=== PATIENT | female | born 1960 | race Caucasian/White ===

== ENCOUNTER → 2016-08-21 | Outpatient (CLI) | payer BC ==
[2014-02-08 10:43] VITALS: BP 168/61
[~2016-08-21] MED LIST: LISI1TAB5 PO; METF500T4 PO; SIMV40TA3 PO
--- NOTE | 2016-08-21 13:11 | RAD ---
DATE: 08/21/2016 EXAM: DIGITAL SCREEN BILAT W/CAD HISTORY: Screening study. COMPARISON: 11/18/2014 This study was interpreted with the benefit of Computerized Aided Detection (CAD). FINDINGS: Digital MLO and CC mammograms of both breasts were obtained. Comparison study is dated 08/21/2016. The breast parenchyma is composed of scattered fibroglandular densities which can obscure a lesion on mammography (breast density code B). No spiculated mass is seen. No malignant appearing calcification or area of architectural distortion is noted. Benign-appearing calcifications are seen scattered throughout both breasts. Since the previous examination there has been no significant interval change. IMPRESSION: Post category 1, negative. There is no mammographic evidence of malignancy. Routine yearly screening mammography is recommended for follow-up. BI-RADS CATEGORY: 1 NEGATIVE RECOMMENDED FOLLOW-UP: 12M 12 MONTH FOLLOW-UP PQRS compliance statement: Patient information was entered into a reminder system with a target due date 08/21/2017 for the next mammogram. Mammography is a sensitive method for finding small breast cancers, but it does not detect them all and is not a substitute for careful clinical examination. A negative mammogram does not negate a clinically suspicious finding and should not result in delay in biopsying a clinically suspicious abnormality. "Our facility is accredited by the [employer] Mammography [employer]."
== END | disposition home or self-care (01) ==
LOC: MAMMO 08:11
PROVIDERS: ATTEND Family Medicine
DX: Z12.31 Encounter for screening mammogram for malignant neoplasm of breast (principal)
CPT/HCPCS: G0202; 77067

== ENCOUNTER → 2017-08-23 | Outpatient (CLI) | payer BC ==
[2014-02-08 10:43] VITALS: BP 168/61
--- NOTE | 2017-08-23 12:32 | RAD ---
DATE: 08/23/2017 EXAM: DIGITAL SCREEN BILAT W/CAD HISTORY: Routine screening COMPARISON: 08/21/2016 This study was interpreted with the benefit of Computerized Aided Detection (CAD). The breast parenchyma shows scattered fibroglandular densities. Breast parenchyma level B. FINDINGS: No new or enlarging breast densities are seen. Benign type calcifications are present. No suspicious microcalcifications have developed. IMPRESSION: Stable mammograms without evidence of malignancy. BI-RADS CATEGORY: 2 BENIGN FINDING(S) RECOMMENDED FOLLOW-UP: 12M 12 MONTH FOLLOW-UP PQRS compliance statement: Patient information was entered into a reminder system with a target due date for the next mammogram. Mammography is a sensitive method for finding small breast cancers, but it does not detect them all and is not a substitute for careful clinical examination. A negative mammogram does not negate a clinically suspicious finding and should not result in delay in biopsying a clinically suspicious abnormality. "Our facility is accredited by the [employer] Mammography [employer]."
== END | disposition home or self-care (01) ==
LOC: MAMMO 10:19
PROVIDERS: ATTEND Family Medicine
DX: Z12.31 Encounter for screening mammogram for malignant neoplasm of breast (principal)
CPT/HCPCS: 77067

== ENCOUNTER → 2018-08-27 | Outpatient (CLI) | payer BC ==
[2014-02-08 10:43] VITALS: BP 168/61
[~2018-08-27] MED LIST changes: +METF500T16 PO; -METF500T4 PO
--- NOTE | 2018-08-28 12:20 | RAD ---
DATE: 08/27/2018 EXAM: DIGITAL SCREEN BILAT W/CAD HISTORY: Routine screening COMPARISON: 08/23/2017 This study was interpreted with the benefit of Computerized Aided Detection (CAD). Breast Density: SCATTERED The breast parenchyma shows scattered fibroglandular densities. Breast parenchyma level B. FINDINGS: 2-D and 3-D tomosynthesis imaging was performed in CC and MLO projections. No new or enlarging breast densities are seen. Benign type calcifications are present. No suspicious microcalcifications have developed. IMPRESSION: Stable mammograms without evidence of malignancy. BI-RADS CATEGORY: 2 BENIGN FINDING(S) RECOMMENDED FOLLOW-UP: 12M 12 MONTH FOLLOW-UP PQRS compliance statement: Patient information was entered into a reminder system with a target due date for the next mammogram. Mammography is a sensitive method for finding small breast cancers, but it does not detect them all and is not a substitute for careful clinical examination. A negative mammogram does not negate a clinically suspicious finding and should not result in delay in biopsying a clinically suspicious abnormality. "Our facility is accredited by the [employer] Mammography [employer]."
== END | disposition home or self-care (01) ==
LOC: MAMMO 09:56
PROVIDERS: ATTEND Family Medicine
DX: Z12.31 Encounter for screening mammogram for malignant neoplasm of breast (principal); R92.8 Other abnormal and inconclusive findings on diagnostic imaging of breast
CPT/HCPCS: 77067

== ENCOUNTER → 2019-11-30 | Outpatient (CLI) | payer BC ==
[2014-02-08 10:43] VITALS: BP 168/61
[~2019-11-30] MED LIST changes: +LISI1TAB37 PO; -LISI1TAB5 PO; +SIMV40TA18 PO; -SIMV40TA3 PO
--- NOTE | 2019-11-30 16:16 | RAD ---
EXAM: Left lower extremity venous Doppler. HISTORY: Left lower extremity pain/swelling. COMPARISON: None. FINDINGS: Grayscale and Doppler analysis of the left lower extremity deep venous system was performed with graded compression and augmentation. The common femoral, greater saphenous, superficial femoral, popliteal and calf veins were assessed. Deep venous thrombosis is is occlusive in the peroneal vein and nonocclusive in the posterior tibial veins. There is no deep venous thrombosis more proximally. IMPRESSION: 1. Deep venous thrombosis in the left calf veins as above. These findings were called to Abi by Donald Cespedes on 11/30/2019 at 4:13 PM. FOR INTERNAL CODING PURPOSES RESULT CODE: (C) Electronically signed by: Noel Cespedes MD (11/30/2019 4:13 PM) [id number]
== END ==
LOC: US 15:31
PROVIDERS: ATTEND Specialist
DX: I82.462 Acute embolism and thrombosis of left calf muscular vein (principal)
CPT/HCPCS: 93971

== ENCOUNTER → 2019-12-21 | Outpatient (CLI) | payer BC ==
[2014-02-08 10:43] VITALS: BP 168/61
--- NOTE | 2019-12-21 12:21 | RAD ---
Examination: 1. Left knee 3 views. 2. Left tibia-fibula 2 views. 3. Left ankle 3 views INDICATION: Pain FINDINGS: Left knee: No fracture or malalignment. Medial compartment asymmetric joint space narrowing with minimal varus angulation. Osteophytic spurs at the superior inferior pole patella is also present. Soft tissues show prominent varices in the medial left knee, leg and thigh. No joint effusion or loose bodies. Left tibia-fibula: No fracture or malalignment. Rounded ossification in the soft tissues anterior to the mid tibia are present, compatible with heterotopic ossification from fat necrosis or phleboliths from slow flow vascular lesions. Left ankle 3 views: No fracture or malalignment. No significant degenerative changes. Incidental calcaneal spur and Achilles enthesophyte. Soft tissues unremarkable. IMPRESSION: Multicompartment left knee degenerative changes affecting the medial compartment to the greatest extent. No acute or aggressive osseous lesions otherwise noted in the left knee, leg, or ankle. Electronically signed by: Brooke Gandara MD (12/21/2019 12:18 PM) [id number]
== END | disposition home or self-care (01) ==
LOC: RAD 11:02
PROVIDERS: ATTEND Family Medicine
DX: M17.12 Unilateral primary osteoarthritis, left knee (principal); M76.62 Achilles tendinitis, left leg; M77.32 Calcaneal spur, left foot; M79.89 Other specified soft tissue disorders
CPT/HCPCS: 73564; 73590; 73610

== ENCOUNTER → 2020-09-22 | Outpatient (CLI) | payer BC ==
[2014-02-08 10:43] VITALS: BP 168/61
--- NOTE | 2020-09-22 12:51 | RAD ---
XR KNEE 3 VIEWS_RT History: Pain Comparison: 12/17/2013 Technique: 3 views the right knee Findings: No fracture or dislocation. Prominent patellofemoral and medial tibiofemoral compartment osteophytes. Moderate medial tibiofemoral compartment narrowing. 1.1 cm and 1.2 cm diameter osteochondral bodies posterior to the knee. Prominent soft tissue varicosities. No significant effusion or focal soft tiss ue swelling. Impression: 1. Degenerative changes of the right knee greatest at the patellofemoral and medial tibiofemoral com partment with articular osteochondral bodies. Electronically signed by: Liu Freed MD (09/22/2020 12:49 PM) [facility]
== END ==
LOC: RAD 10:41
PROVIDERS: ATTEND Family Medicine
DX: M17.11 Unilateral primary osteoarthritis, right knee (principal)
CPT/HCPCS: 73562

== ENCOUNTER → 2021-05-22 | Outpatient (CLI) | payer BC ==
[2014-02-08 10:43] VITALS: BP 168/61
--- NOTE | 2021-05-23 09:19 | RAD ---
BILATERAL DIGITAL SCREENING 2-D AND 3-D MAMMOGRAM INDICATION: Routine screening. COMPARISON: Prior exams including 1 08/27/2018. Interpretation was made using CAD. FINDINGS: Breast Density: A RIGHT BREAST: No suspicious masses, calcifications or areas of architectural distortion are seen. LEFT BREAST: No suspicious masses, calcifications or areas of architectural distortion are seen. IMPRESSION: 1. No imaging evidence of malignancy. ASSESSMENT: BI-RADS 1. Negative. RECOMMENDATION: Routine annual screening mammogram. The facility will notify the patient of the results via mail. Patient information will be entered int o the mammography reminder system with a target recall date for the next mammogram. A reminder letter will be generated by the facility. Electronically signed by: Patrick Fischer Jr., MD (05/23/2021 9:17 AM) [id number]
== END ==
LOC: MAMMO 10:43
PROVIDERS: ATTEND Family Medicine
DX: Z12.31 Encounter for screening mammogram for malignant neoplasm of breast (principal)
CPT/HCPCS: 77063; 77067